=== PATIENT | female | born 1985 | race Two or more races ===

== ENCOUNTER 2017-10-08 22:31 | Inpatient (IN) | payer MEDICAID ==
[~2017-10-08] VITALS: Ht 170.2 cm; Wt 62.4 kg
[2017-10-08] MEDS ORDERED: ONDANSETRON 2MG/ML, 2ML IVPush ONE (23:00)
[2017-10-08] MEDS ORDERED: FAMOTIDINE 20 MG/2 ML IVP ONE (23:00)
[2017-10-08] MEDS ORDERED: SODIUM CHLORIDE FLUSH 10ML SYR IVF ONE (23:00)
[2017-10-08] MEDS ORDERED: SODIUM CHLORIDE 0.9% 1,000ML IVBOLUS ONE (23:00)
[2017-10-08] MEDS ORDERED: MAALOX/HYOSCYAMINE/LIDOCAINE 45 ML BTL PO ONE (23:00)
[2017-10-08 23:16] LABS: MEAN CORPUSCULAR HEMOGLOBIN 32.2 pg (27.0-34.8); MEAN CORPUSCULAR HGB CONC 33.8 g/dL (32.4-35.8); MEAN CORPUSCULAR VOLUME 95.4 fL (80-100); MEAN PLATELET VOLUME 7.4 fL (7.4-10.4); PLATELET COUNT 304 x10^3/uL (130-400); RED BLOOD COUNT 4.45 x10^6/uL (3.82-5.3); RED CELL DISTRIBUTION WIDTH 14.4 % (9.6-15.2)
[2017-10-08 23:23] LABS: ALANINE AMINOTRANSFERASE 13 U/L (12-78); ALBUMIN 3.2 g/dL (3.4-5.0); ANION GAP 8 mmol/L (5-15); CHLORIDE 105 mmol/L (98-107); CREATININE 0.68 mg/dL (0.55-1.02)
[2017-10-08] MEDS ORDERED: MORPHINE SULFATE 4 MG/ML, 1ML ONE (23:23)
[2017-10-08] MEDS ORDERED: ONDANSETRON 2MG/ML, 2ML ONE (23:23)
[2017-10-08] MEDS ORDERED: FAMOTIDINE 20 MG/2 ML ONE (23:24)
[2017-10-08] MEDS ORDERED: MAALOX/HYOSCYAMINE/LIDOCAINE 45 ML BTL ONE (23:24)
[2017-10-08 23:27] LABS: ALKALINE PHOSPHATASE 89 U/L (45-117); TOTAL PROTEIN 6.9 g/dL (6.4-8.2)
[2017-10-08] MEDS: MORPHINE SULFATE 4 MG/ML, 1ML IVPush PRN (23:58)
[2017-10-08 23:59] LABS: BASOPHILS # (AUTO) 0.04 x10^3/uL (0-0.1); BASOPHILS % (AUTO) 0 % (0-1); EOSINOPHILS % (AUTO) 0 % (1-7); LYMPHOCYTES # (AUTO) 1.43 x10^3/uL (1-3.4); LYMPHOCYTES % (AUTO) 4 % (22-44); MD SCAN; MONOCYTES # (AUTO) 0.58 x10^3/uL (0.2-0.8); MONOCYTES % (AUTO) 2 % (2-9); NEUTROPHILS # (AUTO) 30.31 x10^3/uL (1.8-6.8); NEUTROPHILS % (AUTO) 94 % (42-75)
[2017-10-09] MEDS ORDERED: MORPHINE SULFATE 4 MG/ML, 1ML ONE (00:14)
[2017-10-09] MEDS: MORPHINE SULFATE 4 MG/ML, 1ML IVPush PRN (00:21)
[2017-10-09] MEDS ORDERED: OMNIPAQUE 350 MG/ML, 100ML BOTTLE ONE (00:41)
[2017-10-09 01:33] LABS: CULTURE INDICATED? YES; MICROSCOPIC AUTO
[2017-10-09 01:34] LABS: HCG UR SG > 1.045 (1.003-1.030)
[2017-10-09 01:42] LABS: AMPHETAMINE SCREEN, URINE Positive (Negative); BARBITURATE SCREEN, URINE Negative (Negative); BENZODIAZEPINE SCREEN, URINE Negative (Negative); CANNABINOID SCREEN, URINE Negative (Negative); COCAINE SCREEN, URINE Negative (Negative); METHADONE SCREEN, URINE Negative (Negative); OPIATE SCREEN, URINE Positive (Negative)
[2017-10-09] MEDS ORDERED: SODIUM CHLORIDE 0.9% 1,000ML IVBOLUS ONE (02:00)
[2017-10-09] MEDS ORDERED: CEFTRIAXONE PMX 1GM/50ML 50 ML IV ONE (02:00)
[2017-10-09] MEDS ORDERED: CEFTRIAXONE PMX 1GM/50ML 50 ML ONE (02:12)
[2017-10-09] MEDS: CEFTRIAXONE PMX 1GM/50ML 50 ML IV SCH (02:15)
[2017-10-09] MEDS ORDERED: POLYETHYLENE GLYCOL 17 GM PACKET PO PRN (02:30)
[2017-10-09] MEDS: ENOXAPARIN 40 MG/0.4 ML SQ SCH (02:30)
[2017-10-09] MEDS ORDERED: DOCUSATE 100 MG CAPSULE PO PRN (02:30)
[2017-10-09] MEDS ORDERED: ACETAMINOPHEN 325 MG TABLET PO PRN (02:30)
[2017-10-09] MEDS ORDERED: ENOXAPARIN 40 MG/0.4 ML ONE (02:51)
[2017-10-09] MEDS ORDERED: NS + 20MEQ KCL 1,000 ML IV ONE (02:51)
[2017-10-09] MEDS: NS + 20MEQ KCL 1,000 ML IV SCH ×2 (03:33→13:28)
[2017-10-09 03:58] VITALS: BP 121/82
[2017-10-09 05:04] VITALS: BP 101/69
[2017-10-09 07:29] VITALS: BP 113/73
[2017-10-09 13:15] VITALS: BP 97/64
[2017-10-09] MEDS: HYDROcodone/APAP 5/325 TABLET PO PRN ×2 (16:52→22:20)
[2017-10-09] MEDS: morphine SULFATE 10 MG/ML, 1ML IVPush PRN ×2 (17:36→23:30)
[2017-10-09 22:21] VITALS: BP 101/61
[2017-10-09] MEDS: ONDANSETRON 2MG/ML, 2ML IVPush PRN (23:28)
[2017-10-10] MEDS: CEFTRIAXONE PMX 1GM/50ML 50 ML IV SCH (02:23)
[2017-10-10] MEDS: HYDROcodone/APAP 5/325 TABLET PO PRN ×4 (03:58→21:54)
[2017-10-10] MEDS: ENOXAPARIN 40 MG/0.4 ML SQ SCH (04:01)
[2017-10-10 04:13] VITALS: BP 102/70
[2017-10-10] MEDS: morphine SULFATE 10 MG/ML, 1ML IVPush PRN (05:37)
[2017-10-10 07:10] VITALS: BP 112/73
[2017-10-10 09:03] LABS: MEAN CORPUSCULAR HEMOGLOBIN 32.3 pg (27.0-34.8); MEAN CORPUSCULAR HGB CONC 33.6 g/dL (32.4-35.8); MEAN CORPUSCULAR VOLUME 96.1 fL (80-100); MEAN PLATELET VOLUME 7.9 fL (7.4-10.4); PLATELET COUNT 322 x10^3/uL (130-400); RED BLOOD COUNT 4.49 x10^6/uL (3.82-5.3); RED CELL DISTRIBUTION WIDTH 14.3 % (9.6-15.2)
[2017-10-10 09:07] LABS: ANION GAP 4 mmol/L (5-15); CALCIUM 8.7 mg/dL (8.5-10.1); CHLORIDE 103 mmol/L (98-107)
[2017-10-10 09:33] LABS: MD YES
[2017-10-10 09:34] LABS: BAND#(MANUAL) 1.77 x10^3/uL; BANDS%(MANUAL) 6 % (0-7); LYMPH#(MANUAL) 1.48 x10^3/uL (1-3.4); LYMPHS% (MANUAL) 5 % (22-44); MONOS% (MANUAL) 1 % (2-9); SEG#(MANUAL) 25.96 x10^3/uL (1.8-6.8); SEGS% (MANUAL) 88 % (42-75)
[2017-10-10 09:35] LABS: <PLATELET ESTIMATE> ADEQUATE; <PLT MORPHOLOGY> NORMAL PLT MORPH; <RBC MORPHOLOGY> NORMAL
[2017-10-10] MEDS: FOLIC ACID 1 MG TABLET PO SCH (09:53)
[2017-10-10] MEDS: THIAMINE 100MG TABLET PO SCH (09:53)
[2017-10-10] MEDS: DOCUSATE 100 MG CAPSULE PO SCH ×2 (09:53→20:05)
[2017-10-10] MEDS: FAMOTIDINE 20 MG TABLET PO SCH ×2 (09:53→20:05)
[2017-10-10 13:28] VITALS: BP 100/66
[2017-10-10] MEDS: KETOROLAC 30 MG/1 ML IVPush PRN ×2 (16:15→22:56)
[2017-10-10] MEDS: ONDANSETRON 2MG/ML, 2ML IVPush PRN ×2 (16:31→22:53)
[2017-10-10 20:10] VITALS: BP 106/62
[2017-10-11] MEDS: CEFTRIAXONE PMX 1GM/50ML 50 ML IV SCH (02:37)
[2017-10-11 02:51] VITALS: BP 101/55
[2017-10-11] MEDS: HYDROcodone/APAP 5/325 TABLET PO PRN ×3 (05:03→18:51)
[2017-10-11] MEDS: ENOXAPARIN 40 MG/0.4 ML SQ SCH (05:04)
[2017-10-11 05:29] LABS: ALBUMIN 2.3 g/dL (3.4-5.0); ANION GAP 5 mmol/L (5-15); CALCIUM 7.9 mg/dL (8.5-10.1); CHLORIDE 102 mmol/L (98-107)
[2017-10-11 05:32] LABS: ALANINE AMINOTRANSFERASE 7 U/L (12-78); ALKALINE PHOSPHATASE 84 U/L (45-117); BILIRUBIN,TOTAL 0.6 mg/dL (0.2-1.0); CREATININE 0.56 mg/dL (0.55-1.02); TOTAL PROTEIN 6.2 g/dL (6.4-8.2)
[2017-10-11 05:40] LABS: BASOPHILS % (AUTO) 0 % (0-1); EOSINOPHILS # (AUTO) 0.02 x10^3/uL (0-0.4); EOSINOPHILS % (AUTO) 0 % (1-7); LYMPHOCYTES # (AUTO) 1.45 x10^3/uL (1-3.4); LYMPHOCYTES % (AUTO) 9 % (22-44); MD NO; MEAN CORPUSCULAR HEMOGLOBIN 32.3 pg (27.0-34.8); MEAN CORPUSCULAR HGB CONC 33.4 g/dL (32.4-35.8); MEAN CORPUSCULAR VOLUME 96.7 fL (80-100); MEAN PLATELET VOLUME 8.1 fL (7.4-10.4); MONOCYTES # (AUTO) 0.87 x10^3/uL (0.2-0.8); MONOCYTES % (AUTO) 5 % (2-9); NEUTROPHILS # (AUTO) 14.39 x10^3/uL (1.8-6.8); NEUTROPHILS % (AUTO) 86 % (42-75); PLATELET COUNT 312 x10^3/uL (130-400); RED BLOOD COUNT 3.88 x10^6/uL (3.82-5.3)
[2017-10-11 07:16] VITALS: BP 104/57
[2017-10-11] MEDS: FOLIC ACID 1 MG TABLET PO SCH (08:46)
[2017-10-11] MEDS: DOCUSATE 100 MG CAPSULE PO SCH ×2 (08:46→21:33)
[2017-10-11] MEDS: FAMOTIDINE 20 MG TABLET PO SCH ×2 (08:46→21:33)
[2017-10-11] MEDS: KETOROLAC 30 MG/1 ML IVPush PRN ×2 (08:46→17:39)
[2017-10-11] MEDS: THIAMINE 100MG TABLET PO SCH (08:46)
[2017-10-11] MEDS ORDERED: POTASSIUM CHLORIDE 20 MEQ TAB.ER.PRT PO ONE ×2 (09:30→11:30)
[2017-10-11 14:18] VITALS: BP 107/68
[2017-10-11 20:05] VITALS: BP_SYST 100; BP_SYST 135; BP_DIAS 63; BP_DIAS 83
[2017-10-11] MEDS: ONDANSETRON 2MG/ML, 2ML IVPush PRN (21:31)
[2017-10-12] MEDS: KETOROLAC 30 MG/1 ML IVPush PRN ×4 (00:27→21:33)
[2017-10-12 00:48] VITALS: BP 122/76
[2017-10-12 01:51] VITALS: BP 102/62
[2017-10-12] MEDS: CEFTRIAXONE PMX 1GM/50ML 50 ML IV SCH (03:00)
[2017-10-12] MEDS: HYDROcodone/APAP 5/325 TABLET PO PRN ×3 (03:00→18:34)
[2017-10-12] MEDS: ENOXAPARIN 40 MG/0.4 ML SQ SCH (06:46)
[2017-10-12 08:22] VITALS: BP 109/68
[2017-10-12] MEDS: DOCUSATE 100 MG CAPSULE PO SCH ×2 (08:25→21:32)
[2017-10-12] MEDS: THIAMINE 100MG TABLET PO SCH (08:25)
[2017-10-12] MEDS: FAMOTIDINE 20 MG TABLET PO SCH ×2 (08:25→21:33)
[2017-10-12] MEDS: FOLIC ACID 1 MG TABLET PO SCH (08:25)
[2017-10-12 09:43] LABS: ANION GAP 4 mmol/L (5-15); CALCIUM 8.2 mg/dL (8.5-10.1); CHLORIDE 106 mmol/L (98-107); CREATININE 0.44 mg/dL (0.55-1.02)
[2017-10-12 09:48] LABS: BASOPHILS # (AUTO) 0.08 x10^3/uL (0-0.1); BASOPHILS % (AUTO) 1 % (0-1); EOSINOPHILS # (AUTO) 0.04 x10^3/uL (0-0.4); EOSINOPHILS % (AUTO) 0 % (1-7); LYMPHOCYTES # (AUTO) 1.68 x10^3/uL (1-3.4); LYMPHOCYTES % (AUTO) 17 % (22-44); MD NO; MEAN CORPUSCULAR HGB CONC 33.4 g/dL (32.4-35.8); MEAN CORPUSCULAR VOLUME 95.7 fL (80-100); MEAN PLATELET VOLUME 7.4 fL (7.4-10.4); MONOCYTES # (AUTO) 0.91 x10^3/uL (0.2-0.8); MONOCYTES % (AUTO) 9 % (2-9); NEUTROPHILS # (AUTO) 7.36 x10^3/uL (1.8-6.8); NEUTROPHILS % (AUTO) 73 % (42-75); PLATELET COUNT 355 x10^3/uL (130-400); RED BLOOD COUNT 3.85 x10^6/uL (3.82-5.3); RED CELL DISTRIBUTION WIDTH 14.3 % (9.6-15.2)
[2017-10-12] MEDS: MAGNESIUM HYDROXIDE 8%, 30ML UDC PO PRN (13:39)
[2017-10-12 18:30] VITALS: BP 102/68
[2017-10-12] MEDS ORDERED: BISACODYL 10 MG SUPP PR PRN (19:30)
[2017-10-12 20:18] VITALS: BP 110/68
[2017-10-13] MEDS: HYDROcodone/APAP 5/325 TABLET PO PRN ×2 (00:28→09:21)
[2017-10-13 01:25] VITALS: BP 108/71
[2017-10-13] MEDS: CEFTRIAXONE PMX 1GM/50ML 50 ML IV SCH (02:20)
[2017-10-13 05:51] LABS: BASOPHILS # (AUTO) 0.03 x10^3/uL (0-0.1); BASOPHILS % (AUTO) 0 % (0-1); EOSINOPHILS # (AUTO) 0.03 x10^3/uL (0-0.4); EOSINOPHILS % (AUTO) 0 % (1-7); LYMPHOCYTES # (AUTO) 1.88 x10^3/uL (1-3.4); LYMPHOCYTES % (AUTO) 15 % (22-44); MD NO; MEAN CORPUSCULAR HEMOGLOBIN 31.9 pg (27.0-34.8); MEAN CORPUSCULAR VOLUME 96.5 fL (80-100); MEAN PLATELET VOLUME 7.5 fL (7.4-10.4); MONOCYTES % (AUTO) 7 % (2-9); NEUTROPHILS # (AUTO) 9.64 x10^3/uL (1.8-6.8); NEUTROPHILS % (AUTO) 77 % (42-75); PLATELET COUNT 415 x10^3/uL (130-400); RED BLOOD COUNT 3.86 x10^6/uL (3.82-5.3); RED CELL DISTRIBUTION WIDTH 13.8 % (9.6-15.2)
[2017-10-13] MEDS: KETOROLAC 30 MG/1 ML IVPush PRN (05:57)
[2017-10-13] MEDS: ENOXAPARIN 40 MG/0.4 ML SQ SCH (05:57)
[2017-10-13] MEDS: MAGNESIUM HYDROXIDE 8%, 30ML UDC PO PRN (09:21)
[2017-10-13] MEDS: DOCUSATE 100 MG CAPSULE PO SCH (09:21)
[2017-10-13] MEDS: FAMOTIDINE 20 MG TABLET PO SCH (09:21)
[2017-10-13] MEDS: THIAMINE 100MG TABLET PO SCH (09:21)
[2017-10-13] MEDS: FOLIC ACID 1 MG TABLET PO SCH (09:22)
[2017-10-13 09:30] VITALS: BP 115/79
[2017-10-13 13:23] VITALS: BP 98/60
[2017-10-13] MEDS ORDERED: OMNIPAQUE 350 MG/ML, 100ML BOTTLE ONE (15:13)
== END 2017-10-13 16:50 | disposition home or self-care (01) | DRG 872 ==
LOC: ED 23:09 → EDIP 10-09 02:00 → SUATTDRO 10-09 02:14 → 4NOR 10-09 02:22
PROVIDERS: ADMIT Family Medicine; ATTEND Family Medicine
PROC: 0T9B70Z Drainage of Bladder with Drainage Device, Via Natural or Artificial Opening (ICD-10-PCS; principal; 2017-10-09)
DX: A41.51 Sepsis due to Escherichia coli [E. coli] (principal); E87.5 Hyperkalemia; N10 Acute pyelonephritis; N39.0 Urinary tract infection, site not specified; E87.6 Hypokalemia; F15.10 Other stimulant abuse, uncomplicated; F17.200 Nicotine dependence, unspecified, uncomplicated; N63.0 Unspecified lump in unspecified breast; R63.0 Anorexia; Z71.6 Tobacco abuse counseling
CPT/HCPCS: 36415; 74018; 74177; 80048; 80053; 80307; 81001; 81025; 83605; 83690; 83735; 84145; 84703; 85025; 86704; 86706; 86708; 86803; 87040; 87077; 87086; 87186; 87340; 96361; 96374; 96375; 96376; J0696; J1885; J2405; J3480; Q9967; J2270; J7030; S0028

== ENCOUNTER 2018-07-30 10:26 | Emergency (ER) | payer MEDICAID ==
[~2018-07-30] VITALS: Ht 170.2 cm; Wt 80.8 kg
[~2018-07-30 10:26] MED LIST: ESCI20TA10 PO; TRAZ-137 PO
[2018-07-30] MEDS ORDERED: ALUMINUM/MAG/SIMETHICONE 30 ML UDC PO ONE (11:00)
[2018-07-30] MEDS ORDERED: ALUMINUM/MAG/SIMETHICONE 30 ML UDC ONE (11:38)
[2018-07-30 11:41] LABS: BASOPHILS # (AUTO) 0.01 x10^3/uL (0-0.1); BASOPHILS % (AUTO) 0 % (0-1); EOSINOPHILS % (AUTO) 0 % (1-7); LYMPHOCYTES # (AUTO) 0.89 x10^3/uL (1-3.4); LYMPHOCYTES % (AUTO) 9 % (22-44); MD NO; MEAN CORPUSCULAR HEMOGLOBIN 31.6 pg (27.0-34.8); MEAN CORPUSCULAR HGB CONC 34.5 g/dL (32.4-35.8); MEAN CORPUSCULAR VOLUME 91.8 fL (80-100); MEAN PLATELET VOLUME 7.4 fL (7.4-10.4); MONOCYTES # (AUTO) 0.45 x10^3/uL (0.2-0.8); MONOCYTES % (AUTO) 5 % (2-9); NEUTROPHILS # (AUTO) 8.69 x10^3/uL (1.8-6.8); NEUTROPHILS % (AUTO) 87 % (42-75); PLATELET COUNT 278 x10^3/uL (130-400); RED BLOOD COUNT 4.57 x10^6/uL (3.82-5.3); RED CELL DISTRIBUTION WIDTH 13.1 % (9.6-15.2)
[2018-07-30 11:49] LABS: ALANINE AMINOTRANSFERASE 17 U/L (12-78); ALBUMIN 2.9 g/dL (3.4-5.0); ANION GAP 10 mmol/L (5-15); CALCIUM 8.3 mg/dL (8.5-10.1); CHLORIDE 107 mmol/L (98-107); CREATININE 0.39 mg/dL (0.55-1.02)
[2018-07-30 11:52] LABS: ALKALINE PHOSPHATASE 51 U/L (45-117); BILIRUBIN,TOTAL 0.6 mg/dL (0.2-1.0); TOTAL PROTEIN 6.6 g/dL (6.4-8.2)
[2018-07-30 12:17] LABS: MICROSCOPIC AUTO
[2018-07-30 12:22] LABS: CULTURE INDICATED? YES
[2018-07-30 12:50] VITALS: BP 95/62
== END 2018-07-30 13:39 | disposition home or self-care (01) ==
LOC: ED 11:00
DX: O23.12 Infections of bladder in pregnancy, second trimester (principal); K29.00 Acute gastritis without bleeding; Z3A.16 16 weeks gestation of pregnancy
CPT/HCPCS: 36415; 76815; 80053; 81001; 83690; 85025; 86901; 87086; 99285